=== PATIENT | male | born 1975 | race Caucasian/White ===

== ENCOUNTER 2018-04-12 22:32 | Emergency (ER) | payer BC ==
[~2018-04-12] VITALS: Ht 175.3 cm; Wt 83.9 kg
[~2018-04-12 22:32] MED LIST: BUTRANS1 EAC1 TD; NORCO 10-325 T1 EACH PO
[2018-04-12] MEDS ORDERED: MORPHINE SULFATE INJ 4 MG/ML INJ IV STA (22:43)
[2018-04-12] MEDS ORDERED: OMEPRAZOLE20 MG PO (22:50)
[2018-04-12] MEDS ORDERED: HYDROCODON-ACE1 EAC9 PO (22:50)
[2018-04-12] MEDS ORDERED: VYVANSE50 MG PO (22:50)
[2018-04-12] MEDS ORDERED: TRAMADOL HCL E100 MG PO (22:50)
[2018-04-12] MEDS ORDERED: ASPIRIN 81 MG CHEW TAB PO STA (23:54)
--- NOTE | 2018-04-13 00:18 | Diagnostic Imaging Report ---
CHEST SINGLE (PORTABLE), 04/12/2018 10:43 PM Technique: CHEST SINGLE (PORTABLE) Comparison: None available. Clinical history: Chest pain Findings: Normal cardiomediastinal silhouette for portable lordotic technique. There is no consolidation or edema. No pleural effusion or pneumothorax. Impression: 1. Lines/Tubes: None 2. No acute abnormality. Signed by: Dr Joseline Jackson MD on 04/13/2018 12:14 AM
[2018-04-13 00:35] LABS: INR 1.05; PARTIAL THROMBOPLASTIN TIME 28.3 seconds (23.8-35.5); PROTHROMBIN TIME 12.9 seconds (11.9-14.5)
[2018-04-13 00:41] LABS: BASOPHILS % 0.8 % (0.0-1.0); EOSINOPHILS # (AUTO) 0.1 (0.0-0.4); EOSINOPHILS % 1.5 % (0.0-6.0); HEMATOCRIT 56.2 % (38.2-49.6); HEMOGLOBIN 18.6 g/dL (14.0-18.0); LYMPHOCYTES # (AUTO) 1.9 (1.0-3.2); LYMPHOCYTES % 36.4 % (18.0-39.1); MEAN CORPUSCULAR HEMOGLOBIN 26.8 pg (28-32); MEAN CORPUSCULAR HGB CONC 33.1 g/dL (31-35); MEAN CORPUSCULAR VOLUME 81.1 fL (81-99); MONOCYTES # (AUTO) 0.5 (0.2-0.8); MONOCYTES % 9.6 % (4.4-11.3); NEUTROPHILS # (AUTO) 2.7 (2.1-6.9); NEUTROPHILS % 51.1 % (38.7-80.0); PLATELET COUNT 297 x10e3/uL (140-360); RED BLOOD COUNT 6.93 x10e6/uL (4.3-5.7); RED CELL DISTRIBUTION WIDTH 13.7 % (11.7-14.4)
[2018-04-13 00:44] LABS: ALANINE AMINOTRANSFERASE 27 IU/L (0-55); ALBUMIN 4.4 g/dL (3.5-5.0); ALBUMIN/GLOBULIN RATIO 1.3 (0.8-2.0); ALKALINE PHOSPHATASE 46 IU/L (40-150); ANION GAP 15.4 mmol/L (8-16); BLOOD UREA NITROGEN 10 mg/dL (7-26); BUN/CREATININE RATIO 11 (6-25); CALCIUM 9.8 mg/dL (8.4-10.2); CARBON DIOXIDE 24 mmol/L (22-29); CHLORIDE 102 mmol/L (98-107); CREATINE KINASE 120 IU/L (30-200); CREATININE, SERUM 0.95 mg/dL (0.72-1.25); EST GLOMERULAR FILTRATION RATE > 60 ML/MIN (60-); GLUCOSE 99 mg/dL (74-118); POTASSIUM 4.4 mmol/L (3.5-5.1); SODIUM 137 mmol/L (136-145)
== END 2018-04-13 01:55 | disposition home or self-care (01) ==
LOC: ER 22:32
DX: R07.89 Other chest pain (principal); F17.210 Nicotine dependence, cigarettes, uncomplicated
CPT/HCPCS: 36415; 71045; 80053; 82550; 82553; 84484; 85025; 85610; 85730; 93005; 99283